=== PATIENT | female | born 1960 | race Caucasian/White ===

== ENCOUNTER 2019-07-25 17:33 | Emergency (ER) | payer BC ==
[~2019-07-25] VITALS: Ht 160 cm; Wt 54.1 kg
[2019-07-25 17:38] VITALS: Ht 160 cm; Wt 54.1 kg
[2019-07-25] MEDS ORDERED: LEVOXYL50 MCG PO (17:41)
[2019-07-25] MEDS ORDERED: HUMULIN 70100 UNIT/1 SC (17:41)
[2019-07-25] MEDS ORDERED: ZETIA10 MG PO (17:42)
[2019-07-25] MEDS ORDERED: EVOXAC30 MG PO (17:42)
[2019-07-25] MEDS ORDERED: [UNRECOGNIZED DRUG - OTHER] (17:43)
[2019-07-25] MEDS ORDERED: MERIBIN5 MG PO (17:43)
[2019-07-25] MEDS ORDERED: VITAMIN D5000 UNIT PO (17:44)
[2019-07-25 18:19] LABS: BASOPHILS 0.8 % (0-2); EOSINOPHILS 3.6 % (0-7); HEMATOCRIT 33.2 % (36.0-48.0); HEMOGLOBIN 11.9 g/dL (12-16); IMMATURE GRANULOCYTES 0.2 % (0-5); LYMPHOCYTES 26.3 % (15-50); MCH 29.4 pg (26.0-34.0); MCHC 35.8 g/dL (31.0-37.0); MEAN PLATELET VOLUME 12.1 fL (7.4-10.4); MONOCYTES 8.1 % (2-11); PLATELET COUNT 178 10x3/uL (130-400); RBC 4.05 10x6/uL (4.00-5.40); RDW 12.1 % (11.5-14.5); WBC 5.9 10x3/uL (4.8-10.8)
[2019-07-25 18:20] LABS: APPEARANCE CLEAR (CLEAR); BILIRUBIN NEGATIVE (NEGATIVE); COLOR STRAW (YELLOW); GLUCOSE 50 mg/dL (NEGATIVE); KETONE SMALL mg/dL (NEGATIVE); NITRITE NEGATIVE (NEGATIVE); PROTEIN NEGATIVE (NEGATIVE); UROBILINOGEN NORMAL (NORMAL)
[2019-07-25 18:26] LABS: ALKALINE PHOSPHATASE 93 U/L (46-116); ALT (SGPT) 35 U/L (10-68); BILIRUBIN - TOTAL 1.54 mg/dL (0.2-1.3); CALC OSMOLALITY 269 mosm/kg (275-300); CALCIUM 8.8 mg/dL (8.5-10.1); CARBON DIOXIDE 29.7 mmol/L (21.0-32.0); CHLORIDE - SERUM 95 mmol/L (98-107); GLUCOSE 215 mg/dL (74-106); MAGNESIUM - SERUM 1.7 mg/dL (1.8-2.4); POTASSIUM - SERUM 4.4 mmol/L (3.5-5.1); PROTEIN - SERUM 6.7 g/dL (6.4-8.2); SODIUM 130 mmol/L (136-145); UREA NITROGEN 20 mg/dL (7-18); eGFR NON AFRICAN AMERICAN 61 mL/min (90-120)
[2019-07-25 18:40] LABS: KETONE - SERUM NEGATIVE (NEGATIVE)
[2019-07-25 19:47] VITALS: BP 179/86
== END 2019-07-25 19:47 | disposition home or self-care (01) ==
LOC: D.ER 17:33
PROVIDERS: Family Medicine
DX: E11.65 Type 2 diabetes mellitus with hyperglycemia (principal)

== ENCOUNTER → 2021-05-02 14:48 | Outpatient (CLI) | payer BC ==
[2019-07-25 17:38] VITALS: BMI 21.1
[~2021-05-02 14:48] MED LIST: EVOXAC30 MG PO; HUMULIN 70100 UNIT/1 SC; LEVOXYL50 MCG PO; MERIBIN5 MG PO; VITAMIN D5000 UNIT PO; ZETIA10 MG PO; [UNRECOGNIZED DRUG - OTHER]
== END | disposition home or self-care (01) ==
LOC: D.RAD 14:48
PROVIDERS: ATTEND Internal Medicine Gastroenterology
DX: R19.7 Diarrhea, unspecified (principal); R15.9 Full incontinence of feces; R19.4 Change in bowel habit